=== PATIENT | female | born 2000 | race Two or more races ===

== ENCOUNTER 2022-12-31 17:34 | Inpatient (IN) | payer MEDICAID ==
[~2022-12-31] VITALS: Ht 152.4 cm; Wt 59.4 kg
[2022-12-31 18:21] LABS: BASOPHILS % (AUTO) 0.5 % (0.0-2.0); EOSINOPHILS % (AUTO) 1.4 % (1.0-6.0); HEMATOCRIT 38.4 % (36-46); LYMPHOCYTES # (AUTO) 1.4 K/uL (1.0-4.8); LYMPHOCYTES % (AUTO) 19.3 % (22.0-44.0); MEAN CORPUSCULAR HEMOGLOBIN 30.6 pg (26.0-34.0); MEAN CORPUSCULAR HGB CONC 33.9 G/dL (31.0-37.0); MEAN CORPUSCULAR VOLUME 90 fL (80-100); MONOCYTES # (AUTO) 0.6 K/uL (0.1-1.0); MONOCYTES % (AUTO) 8.1 % (2.0-9.0); NEUTROPHILS # (AUTO) 5.1 K/uL (1.8-7.7); NEUTROPHILS % (AUTO) 70.7 % (40.0-70.0); PLATELET COUNT (AUTO) 264 K/uL (150-450); RED BLOOD CELL COUNT(AUTO) 4.25 MIL/uL (4.00-5.20); RED CELL DISTRIBUTION WIDTH 12.9 % (11.5-14.5)
[2022-12-31 18:34] LABS: ANION GAP 11 mmol/L (8-16); CALCIUM, TOTAL 9.2 mg/dL (8.8-10.5); CARBON DIOXIDE 25 mmol/L (22-29); CHLORIDE 101 mmol/L (98-107); GLOMERULAR FILTR. RATE CALC > 60 mL/min (>60); GLUCOSE,RANDOM 98 mg/dL (70-110); POTASSIUM 3.6 mmol/L (3.5-5.1); SODIUM SERUM 137 mmol/L (136-145)
[2022-12-31 18:49] LABS: ALANINE AMINOTRANSFERASE 15 U/L (12-78); ALBUMIN 4.1 g/dL (3.4-5.0); ALKALINE PHOSPHATASE 62 U/L (46-116); ASPARTATE AMINOTRANSFERASE 13 U/L (15-37); BILIRUBIN,TOTAL 0.2 mg/dL (0.1-1.0); HCG,QUANTITATIVE < 1 mIU/mL (0-6); THYROID STIMULATING HORMONE 0.88 uIU/mL (0.36-3.74); TOTAL PROTEIN, SERUM 7.9 g/dL (6.4-8.2)
[2022-12-31 21:09] LABS: COVID AG,FIA SOURCE NASOPHARYNGEAL
[2022-12-31] MEDS: ZOLPIDEM TARTRATE 10 MG TABLET PO PRN (23:29)
[2022-12-31] MEDS: LORazepam 2 MG TABLET PO PRN (23:29)
[2023-01-01] MEDS: LORazepam 2 MG TABLET PO PRN ×3 (04:58→16:05)
[2023-01-01] MEDS: HALOPERIDOL 5 MG TABLET PO PRN (04:58)
[2023-01-01 15:08] VITALS: BP 117/77; PULSE 97; RESP 18; TEMP 97; O2SAT 97
[2023-01-01 20:40] VITALS: BP 139/66; PULSE 99; RESP 18; TEMP 97.6; O2SAT 98
[2023-01-01] MEDS: ZOLPIDEM TARTRATE 10 MG TABLET PO PRN (20:56)
[2023-01-01] MEDS: RisperiDONE 3 MG TABLET PO SCH (20:56)
[2023-01-02] MEDS: HALOPERIDOL 5 MG TABLET PO PRN ×2 (00:27→08:46)
[2023-01-02] MEDS: LORazepam 2 MG TABLET PO PRN ×3 (00:27→22:19)
[2023-01-02 01:18] VITALS: BP 116/61; PULSE 105; RESP 18; TEMP 97; O2SAT 97
[2023-01-02] MEDS: FERROUS SULFATE 325 MG EC TABLET PO SCH (06:34)
[2023-01-02] MEDS: DOCUSATE SODIUM 100 MG CAPSULE PO SCH (08:39)
[2023-01-02] MEDS: LamoTRIgine 100 MG TABLET PO SCH ×2 (08:39→17:05)
[2023-01-02] MEDS: ESCITALOPRAM OXALATE 20 MG TABLET PO SCH (08:39)
[2023-01-02] MEDS: GABAPENTIN 300 MG CAPSULE PO SCH ×2 (08:39→17:05)
[2023-01-02] MEDS: PROPRANOLOL HCL 10 MG TABLET PO SCH ×2 (08:39→17:06)
[2023-01-02] MEDS ORDERED: PROPRANOLOL HCL 10 MG TABLET PO SCH (09:00)
[2023-01-02 09:42] VITALS: BP 131/83; PULSE 80; RESP 18; TEMP 98.4; O2SAT 98
[2023-01-02 17:04] VITALS: BP 128/81; PULSE 106
[2023-01-02] MEDS: RisperiDONE 3 MG TABLET PO SCH (20:24)
[2023-01-02] MEDS: ZOLPIDEM TARTRATE 10 MG TABLET PO PRN (20:42)
[2023-01-02 21:09] VITALS: BP 135/73; PULSE 99; RESP 18; TEMP 98.4; O2SAT 96
[2023-01-02 21:55] VITALS: BP 118/63; PULSE 92; RESP 18; TEMP 98.1; O2SAT 96
[2023-01-03] MEDS: FERROUS SULFATE 325 MG EC TABLET PO SCH (06:35)
[2023-01-03] MEDS: PROPRANOLOL HCL 10 MG TABLET PO SCH ×2 (08:47→16:33)
[2023-01-03] MEDS: DOCUSATE SODIUM 100 MG CAPSULE PO SCH (08:47)
[2023-01-03] MEDS: LamoTRIgine 100 MG TABLET PO SCH ×2 (08:47→16:32)
[2023-01-03] MEDS: ESCITALOPRAM OXALATE 20 MG TABLET PO SCH (08:47)
[2023-01-03] MEDS: GABAPENTIN 300 MG CAPSULE PO SCH ×2 (08:47→16:32)
[2023-01-03 09:05] VITALS: BP 135/90; PULSE 74; RESP 19; TEMP 97.2; O2SAT 100
[2023-01-03 16:31] VITALS: BP 124/89; PULSE 107
== END 2023-01-03 18:30 | disposition home or self-care (01) | DRG 750 ==
LOC: EMS 17:34 → 3EI 01-01 13:39
PROVIDERS: ADMIT Psychiatry & Neurology Child & Adolescent Psychiatry; ATTEND Psychiatry & Neurology Child & Adolescent Psychiatry
DX: F25.1 Schizoaffective disorder, depressive type (principal); R45.851 Suicidal ideations; F43.10 Post-traumatic stress disorder, unspecified; F90.9 Attention-deficit hyperactivity disorder, unspecified type; R63.0 Anorexia; G47.00 Insomnia, unspecified; Z20.822 Contact with and (suspected) exposure to COVID-19; Z68.25 Body mass index [BMI] 25.0-25.9, adult
CPT/HCPCS: 80053; 84443; 84702; 85025; 99285; G0480